=== PATIENT | female | born 1975 | race Caucasian/White ===

== ENCOUNTER 2022-05-09 13:59 | Outpatient (CLI) | payer BC, OTHER ==
[~2022-05-09 13:59] MED LIST: Iopamidol 300 61% 100 ML VIAL FS ONE
== END 2022-05-09 14:00 | disposition home or self-care (01) ==
LOC: CSHCT 13:59
PROVIDERS: ATTEND Nurse Practitioner Family
DX: R93.89 Abnormal findings on diagnostic imaging of other specified body structures (principal)
CPT/HCPCS: 71260; Q9967